=== PATIENT | female | born 1960 | race Caucasian/White ===

== ENCOUNTER 2017-02-28 10:41 | Emergency (ER) | payer OTHER ==
--- NOTE | 2017-02-28 12:44 | RAD ---
Indication: LEFT knee pain, swelling, limited range of motion. Pain under the patella. Hit knee on file cabinet yesterday. Comparison: August 26, 2014 Technique: LEFT knee: LEFT views. REPORT AND IMPRESSION: Negative for joint effusion, fracture, or malalignment. Preserved joint spaces. Mild anterior soft tissue swelling.
[2017-02-28 13:20] VITALS: BP 156/90
--- NOTE | 2017-03-17 19:30 | UC ---
Knee Pain HPI - HPI Summary HPI Summary: left knee pain after hitting the counter on a file cabinet--she felt like here knee cap moved and relocated - History of Current Complaint Chief Complaint: UCLowerExtremity Stated Complaint: LEFT KNEE PAIN Time Seen by Provider: 02/28/17 11:59 Hx Obtained From: Patient Hx Last Menstrual Period: 06/19/15 ?: No Onset/Duration: Sudden Onset, Lasting Days - 1, Still Present Severity Initially: Moderate Severity Currently: Mild Location Of Injury: left knee Pain Intensity: 0 Pain Scale Used: 0-10 Numeric Character: Aching, Throbbing Aggravating Factor(s): Movement, Weight Bearing Alleviating Factor(s): Rest Associated Signs And Symptoms: Positive: Redness Able to Bear Weight: Yes - Allergies/Home Medications Allergies/Adverse Reactions: Allergies Allergy/AdvReac Type Severity Reaction Status Date / Time Amoxicillin Allergy Hives Verified 02/28/17 10:54 Aspirin Allergy GI Upset Verified 02/28/17 10:54 Clarithromycin [From Biaxin] Allergy GI Upset Verified 02/28/17 10:54 Clavulanic Acid Allergy GI Upset Verified 02/28/17 10:54 [From Augmentin] Levofloxacin [From Levaquin] Allergy Shortness Verified 02/28/17 10:54 of Breath Metoclopramide [From Reglan] Allergy Unknown Verified 02/28/17 10:54 Reaction Details PMH/Surg Hx/FS Hx/Imm Hx Previously Healthy: No Cardiovascular History: Hypertension - Surgical History Surgical History: Yes Surgery Procedure, Year, and Place: T&A AGE 12. peraesophageal surgery - Family History Known Family History: Negative: Diabetes - Social History Occupation: Employed Full-time Lives: With Family Alcohol Use: None Substance Use Type: None Smoking Status (MU): Never Smoked Tobacco - Immunization History Most Recent Influenza Vaccination: allergic Review of Systems Constitutional: Negative Skin: Negative Eyes: Negative ENT: Negative Respiratory: Negative Cardiovascular: Negative Gastrointestinal: Negative Genitourinary: Negative Motor: Negative Neurovascular: Negative Musculoskeletal: Arthralgia - left knee pain and swelling Neurological: Negative Psychological: Negative Is Patient Immunocompromised?: No All Other Systems Reviewed And Are Negative: Yes Physical Exam Triage Information Reviewed: Yes Appearance: Well-Appearing, No Pain Distress, Well-Nourished Vital Signs: Initial Vital Signs Temp 99 F 02/28/17 10:56 Pulse 84 02/28/17 10:56 Resp 16 02/28/17 10:56 BP 153/90 02/28/17 10:56 Pulse Ox 100 02/28/17 10:56 Vital Signs Reviewed: Yes Eye Exam: Normal Eyes: Positive: Conjunctiva Clear ENT Exam: Normal ENT: Positive: Normal ENT inspection, Hearing grossly normal, Pharynx normal. Negative: Tonsillar swelling, Tonsillar exudate, Trismus, Muffled voice, Hoarse voice Dental Exam: Normal Neck exam: Normal Neck: Positive: Supple, Nontender, No Lymphadenopathy Respiratory Exam: Normal Respiratory: Positive: Chest non-tender, No respiratory distress, No accessory muscle use, Respiratory distress Cardiovascular Exam: Normal Cardiovascular: Positive: RRR, Pulses Normal, Brisk Capillary Refill Musculoskeletal Exam: Normal Musculoskeletal: Positive: Strength Intact, ROM Intact, Edema @ - left knee Neurological Exam: Normal Neurological: Positive: Alert, Muscle Tone Normal Psychological Exam: Normal Skin Exam: Normal Diagnostics - Radiology No standard instances Xray Interpretation: Positive (See Comments) - soft tissue swelling Radiology Interpretation Completed By: Radiologist Knee Pain Course/Dx - Course Course Of Treatment: cassia, knee immoblizer, crutches pain control, follow with ortho - Differential Dx/Diagnosis Provider Diagnoses: Left knee injury Discharge - Discharge Plan Condition: Stable Disposition: HOME Prescriptions: traMADol TAB* [Ultram*] 50 mg PO Q6HR PRN #20 tab MDD 4 PRN Reason: pain Patient Education Materials: Swollen Knee Joint (ED), RICE Therapy (ED) Referrals: Sachin Branham MD [Medical Doctor] - 3 Days Baldemar Ambrose DO [Primary Care Provider] -
== END 2017-02-28 13:17 | disposition home or self-care (01) ==
LOC: UCCORT 10:41
DX: S89.92XA Unspecified injury of left lower leg, initial encounter (principal); W22.8XXA Striking against or struck by other objects, initial encounter; Y93.9 Activity, unspecified; Y92.9 Unspecified place or not applicable; I10 Essential (primary) hypertension; Z88.6 Allergy status to analgesic agent; Z88.1 Allergy status to other antibiotic agents
CPT/HCPCS: 99212; G0463

== ENCOUNTER 2019-05-28 10:05 | Emergency (ER) | payer MEDICARE, OTHER | END 2019-05-28 10:54 | disposition left against medical advice (07) | LOC: UCCORT 10:05 | DX: Z53.21 Procedure and treatment not carried out due to patient leaving prior to being seen by health care provider (principal) ==